=== PATIENT | female | born 1975 | race Caucasian/White ===

== ENCOUNTER 2021-04-10 12:24 | Inpatient (IN) | payer BC ==
[~2021-04-10] VITALS: Ht 147.3 cm; Wt 54.4 kg
[~2021-04-10 12:24] MED LIST: CITRATE OF MAG296 ML PO; PHENERGAN 25 MG25 M1 PO; ZOFRAN 4 MG ORAL4 M1 DIS; ZYRTEC10 M1 PO
[2021-04-10 12:29] VITALS: BP 133/70
[2021-04-10 13:02] LABS: ABSOLUTE NEUTROPHILS 10.5 thou/uL (1.4-8.2); BASOPHILS 0.1 % (0.0-2.0); HEMATOCRIT 40.2 % (37.0-47.0); HEMOGLOBIN 14.1 gm/dL (12.0-15.0); MCH 32.6 pg (26.0-34.0); MCV 93.3 fL (80.0-100.0); MONOCYTES 2.4 % (1.0-8.0); PLATELET COUNT 237 thou/uL (150-400); POLYS 93.5 % (36.0-66.0); RBC 4.31 mil/uL (4.20-5.00); RDW 13.2 % (10.5-14.5); WBC 11.2 thou/uL (4.0-11.0)
[2021-04-10 13:04] LABS: URINE BILIRUBIN NEGATIVE (Negative); URINE BLOOD NEGATIVE (Negative); URINE CLARITY CLEAR; URINE COLOR YELLOW; URINE GLUCOSE-RANDOM* NEGATIVE (Negative); URINE KETONES NEGATIVE (Negative); URINE LEUKOCYTES-REFLEX NEGATIVE (Negative); URINE NITRITE-REFLEX NEGATIVE (Negative); URINE PROTEIN (DIPSTICK) NEGATIVE (Negative); URINE SPECIFIC GRAVITY >= 1.030 (1.005-1.035); URINE UROBILINOGEN 0.2 E.U./dl (0.2-1.0)
[2021-04-10 13:20] LABS: CALCIUM 8.6 mg/dL (8.5-10.1); CREATININE 0.6 mg/dL (0.6-1.0); POTASSIUM 3.8 mmol/L (3.5-5.1)
[2021-04-10 13:24] LABS: ALBUMIN 4.1 g/dL (3.4-5.0); DIRECT BILIRUBIN 0.1 mg/dL (<0.1-0.2); TOTAL BILIRUBIN 0.6 mg/dL (0.2-1.0); TOTAL PROTEIN 7.4 g/dL (6.4-8.2)
[2021-04-10 17:57] VITALS: BP 121/81
[2021-04-10 18:11] VITALS: BP 114/74
[2021-04-10 18:46] VITALS: BP 126/87
[2021-04-10 19:05] VITALS: BP 116/77
--- NOTE | 2021-04-10 21:10 | NUR ---
ASSUMED PT CARE AT 1900.PT'S ADMISSION COMPLETED.PT MAMTA,USES ESTEPHANIE HEARING AID.PT UP ADLIB IN THE ROOM.PT NPO AT THIS TIME.MOUTH SWAB PROVIDED.FAMILY IN THE ROOM DURING ADMISSION.PT ABLE TO MAKE HER NEEDS KNOWN.CALL LIGHT WITHIN REACH.
[2021-04-11 04:00] VITALS: BP 117/75
[2021-04-11 08:21] VITALS: BP 118/76
--- NOTE | 2021-04-11 11:39 | NUR ---
ASSUMED PT CARE AROUND 0700. PT ALERT X ORIENTED X 4. ON ROOM AIR. UP AD RABIA.NPO SINCE MIDNIGHT. NO COMPLAINTS OF N/V/ ABDOMINAL PAIN.IV RT AC. PT CONCERN ABOUT THE PLAN FOR TODAY AND WANTED TO TALK TO THE DOCTOR. RN LEFT MESSAGE FOR DR. VELASQUEZ'S OFFICE, BUT BEFORE THE STAFF FROM 'S OFFICE CALLED BACK, DR. HENDERSON TALKED TO THE PATIENT AND DISCUSSED THE PLAN. PT IS ON CLEAR LIQUID DIET SINCE 1045. PT HAD CONCERN ABOUT BOWEL MOVEMENT. STOOL SOFTNER AND MIRALAX ORDERED WAS GIVEN. WILL CALL APPROPRIATELY. CALL LIGHT IN REACH. WILL CONT TO MONITOR. NORMAL SALINE RUNNING AT 75MLS/HR.
[2021-04-11 17:18] VITALS: BP 119/57
[2021-04-11 18:18] VITALS: BP 119/57
== END 2021-04-11 18:40 | disposition home or self-care (01) | DRG 446 ==
LOC: ER 12:24 → EROBS 18:17 → 4S 18:17
PROVIDERS: Nurse Practitioner; ADMIT Surgery; ATTEND Surgery
DX: K80.20 Calculus of gallbladder without cholecystitis without obstruction (principal); K59.00 Constipation, unspecified; Z91.040 Latex allergy status; Z90.721 Acquired absence of ovaries, unilateral; Z79.899 Other long term (current) drug therapy
CPT/HCPCS: 10102